=== PATIENT | male | born 1965 | race Caucasian/White ===

== ENCOUNTER 2025-05-18 13:35 | Emergency (ER) | payer BC, SELFPAY ==
--- OUTSIDE RECORDS SUMMARY | 2025-04-25 16:30 | XMS_ITS | Encounter Summary ---
Author Organization [facility] Address [address] [place] [phone] Phone [email or web address] [email or web address] Care Team Providers Care Cafe Lead Name Role Phone Unavailable Primary Care Provider Unavailabl e Reason for Visit * Reason Comments Eye Exam Personal eye exam. H e notices changes in vision. Increase in blur at near. Blur is mild. Spots and/or Floaters OP Occasionally se es floating dots or shadows. 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 male. Chief Complaint Eye Exam; Spots and/or Floaters OP HPI Eye Exam Additional comments: Personal eye exam. He notices changes in vision. Increase in blur at near. Blur is mild. Spots and/or Floaters OP In both eyes. Additional comments: Occasionally sees floating dots or shadows. Comments He reports some dry eyes recently. He does not treat with any drops. Last edited by Balwinder Roblero, OD on 04/25/2025 8:16 PM. ROS Negative for: Constitutional, Gastrointestinal, Neurological, Skin, Genitourinary, Musculoskeletal,HENT, Endocrine, Cardiovascular, Eyes, Respiratory, Psychiatric, Allergic/Imm, Heme/Lymph Last edited by Balwinedr Roblero, OD on 04/25/2025 4:31 PM. Visual Acuity Visual Acuity (Snellen - Linear) Right Left Dist sc 20/20 20/20 Dist cc 20/20 -2 20/20 Near cc 20/20 20/20 Pupils Pupils Pupils Dark Light APD Right PERRL 6 3 None Left PERRL 6 3 None Extraocular Movement Extraocular Movement Right Left Full, Ortho Full, Ortho Confrontational Visual Vo Visual Vo Left Right Full Full Tonometry Tonometry (Non-contact air puff, 4:47 PM) Right Left Pressure 16 18 Color Color Right Left Ishihara 08/13 08/13 Wearing Rx Wearing Rx Sphere Cylinder [place] Add Right [place] +2.50 Left +0.25 -0.50 180 +2.50 Type: PAL Wearing Rx #2 Sphere Cylinder [place] Add Right +0.50 -0.25 130 Left +1.00 -0.75 004 Type: autorefraction Keratometry Keratometry (Automated) K1 [place] K2 [place] Mires Right 44.50 144 45.00 054 Normal Left 44.25 009 44.50 099 Normal Manifest Refraction Manifest Refraction Sphere Cylinder [place] Dist VA Add Near VA Right +0.25 20/20 +2.25 J1+ Left +1.00 -0.75 004 20/20 +2.25 J1+ Eyeglass Final Rx Eyeglass Final Rx Sphere Cylinder [place] Dist VA Add Near VA Right +0.25 20/20 +2.25 J1+ Left +1.00 -0.75 004 20/20 +2.25 J1+ Type: PAL Expiration Date: 04/25/2026 Dilation Dilation Both eyes: 0.5% tropicamide @ 4:58 PM Main Ophthalmology Exam External Exam Right Left External Normal Normal Slit Lamp Exam Right Left Lids/Lashes Normal Normal Conjunctiva/Sclera White and quiet White and quiet Cornea Clear Clear Anterior Chamber Deep and quiet Deep and quiet Iris Round and reactive Round and reactive Lens 1+ Anterior subcapsular cataract 1+ Anterior subcapsular cataract Vitreous trace Vitreous syneresis trace Vitreous syneresis Fundus Exam Right Left Disc Normal Normal C/D Ratio 0.4 0.4 Macula Flat and Intact Flat and Intact Vessels Normal Normal Periphery Normal Normal <div id= MAIN_EXAM_REVIEWED ></div> Ronny was seen today for eye exam and spots and/or floaters op. Diagnoses and all orders for this visit: Presbyopia (Primary) - new glasses prescription given - recommend wearing Rx lenses full-time Mild Anterior cortical and subcapsular cataract OU - no treatment at this time - recommend yearly eye exams to monitor Vitreal floaters OU - discussed appears of floaters with patient - normal age-related changes - recommend RTC if notices any changes in size or number of floaters, or if develops other symptoms Balwinder Roblero OD documented in this encounter Plan of Treatment Not on file documented as of this encounter Visit Diagnoses Diagnosis Presbyopia- Primary documented in this encounter
[2025-05-18 14:00] VITALS: BP 150/73; PULSE 95; RESP 14; TEMP 36.9; O2SAT 97; BMI 28.6
--- OUTSIDE RECORDS SUMMARY | 2025-05-18 14:07 | XMS_ITS | Clinical Summary ---
Author Organization [facility] Address [address] [place] [address] Phone [email or web address] [email or web address] Care Team Providers Care Affiliate Marketing Specialist Name Role Phone Unavailable Primary Care Provider Unavailabl e Allergies No known active allergies Medications No known medications Encounters Date Type Department Care Team Description 04/25/2025 4:30 PM EDT Office Visit [facility] [address] [place] [address] Balwinder Roblero OD Presbyopia (Primary Dx) from Last 3 Months Social History Tobacco Use Types Packs/Day Years Used Date Smoking Tobacco: Never Assessed Stress Answer Date Recorded Stress in your Life Not on file 08/11/2024 Dealing with Stress 3 08/11/2024 Sex and Gender Information Value Date Recorded Sex Assigned at Male 04/25/2025 10:29 AM CDT 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 Gender Identity Male 04/25/2025 10:29 AM CDT Sexual Orientation Not on file Plan of Treatment Health Maintenance Due Date Last Done Comments CT Colonography 1965 Colonoscopy 1965 Colorectal Cancer Screening Combo 1965 DNA Cologuard 1965 Dental Cleaning/Exam 1965 FIT or FOBT Test 1965 HIV Screening 1965 Hepatitis C Screening 1965 Sigmoidoscopy 1965 Annual Preventive Exam 1983 Hep B Infection Screening - Triple Screen 1983 Hepatitis B Immunization (1 of 3 - 19+ 3-dose series) 1984 Zoster Immunization (1 of 2) 2015 Covid-19 Immunization (3 2023- season) 2024 01/06/2021, 12/16/2020 Influenza Immunization (#1) 2025 Tetanus Diphtheria and Pertussis Immunization (3 - Td or Tdap) 07/21/2033 07/21/2023, 01/08/2019 HIB Immunization Aged Out No longer e ligible based on patient's age to complete this topic HPV Immunization Aged Out No longer e ligible based on patient's age to complete this topic Hepatitis A Immunization Aged Out No longer eligible based on patient's age to complete this topic Pneumococcal: Ped (0 to 5 Yr s) and At-Risk Member (6 to 64 Yrs) Aged Out No longer eligible b ased on patient's age to complete this topic Polio Immunization Aged Out No longer eligible based on patient's age to complete this topic
--- NOTE | 2025-05-18 14:08 | ED_ITS ---
<Statement entered by Benson Desouza DO - 05/19/25 17:27> I was consulted by the KARMEN, and we discussed the complexity of problems being addressed. I approved the treatment and management plan for this patient's care in the emergency department, thus performing a substantive portion of the medical decision making. Benson Desouza DO Discharge Plan Disposition Patient Disposition: Home, Self-Care Referrals Follow up/Referrals: Provider,Referral, MD [Primary Care Provider, Medical] - See instructions Activity Restrictions/Add. Instructions Additional Instructions/Restrictions: Today you were evaluated in the emergency department, you have a mild, partial amputation of your distal thumb. Lease leave the nonadherent dressing that we applied for at least 24 hours. Please keep the area clean and dry, leave it open to air when possible. No swimming or submerging your finger for at least 7 to 10 days. Please return to the ED immediately if you have any signs of infection. This will take approximately 2 to 4 weeks to heal. Follow-up with your PCP. Return to the ED for worsening of condition. Today your tetanus vaccination was updated. Clinical Impressions Clinical Impression: Soft tissue injury of finger Instructions Patient Instructions: DI for Laceration Repair Print Language Print Language: Haitian Discharge ED Provider: Benson Desouza Adult HPI General Chief complaint: Wound/Laceration Stated complaint: AO 05/18/25 13:15. cut rt thumb Time Seen by Provider: 05/18/25 13:56 History of Present Illness HPI narrative: patient is a 59-year-old male no significant PMHx who presents to the ED for a laceration with a table-saw that occurred prior to arrival. Patient states he was guide while using a table saw but still cut the tip of his right thumb. Patient states it initially bled but however stopped pretty quickly. Related Data Allergies Allergy/AdvReac Type Severity Reaction Status Date / Time No Known Drug Allergies Allergy Unknown Verified 05/18/25 14:10 [facility] Dis[facility]: The information contained in this section may have been updated after the patient was seen, as this information can be updated by other users. Social History Smoking Status: Never smoker alcohol intake: never current occupational status: employed Travel in the last 8 weeks?: None ROS Obtained: Yes Systems reviewed as appropriate & no additional complaints except as documented Physical Exam General General appearance: alert Head Head exam: atraumatic Eye Eye exam: Present PERRL Neck Neck exam: Present full ROM Respiratory Respiratory exam: Present normal lung sounds bilaterally Cardiovascular Cardiovascular exam: Present regular rate Abdominal Exam Abdominal exam: Present soft Extremities Exam Extremities exam: Present other (Right thumb distal mild partial amputation, minor tissue injury ) Neurological Exam Neurological exam: Present alert and oriented X3 Skin Skin exam: Present warm Medical Decision Making Medical Records Screening: Per USPSTF and CDC recommendations, given the prevalence of disease in our region, it is our hospital?s policy to screen for HIV and viral Hepatitis for all patients aged 18 and over and those with ongoing risk factors. Esa Inquiry Pt receiving controlled substance: No Vital Signs: 05/18/25 14:00 05/18/25 14:36 Temperature 98.4 F 98.5 F Temperature Source Oral Oral Pulse Rate 82 Pulse Rate [Right] 95 H Respiratory Rate 14 14 Blood Pressure 131/99 H Blood Pressure [Right Arm] 150/73 H Blood Pressure Mean [Right Arm] 98 Blood Pressure Source Automatic Cuff Blood Pressure Source [Right Arm] Automatic Cuff Blood Pressure Position Supine Blood Pressure Position [Right Arm] Supine 02 Sat by Pulse Oximetry 97 Oxygen Delivery Method Room Air Room Air Orders (Tests/Meds): ED MEDICATIONS Discontinued Medications Generic Name Dose Route Start Last Admin Trade Name Freq PRN Reason Stop Dose Admin Tetanus/Reduced Diphtheria/Acell Pertussis 0.5 ml 05/18/25 14:11 05/18/25 14:25 Tet/Diphth/Pert-Adult 0.5ml Syringe IM 05/18/25 14:12 0.5 ml .ONCE ONE Administration Medical Decision Narrative: In summary, patient is a 59-year-old male no significant PMHx who presents to the ED for a laceration with a table-saw that occurred prior to arrival. Patient states he was guide while using a table saw but still cut the tip of his right thumb. Patient states it initially bled but however stopped pretty quickly. He denies any other injury. He states he has had a table-saw injury in the past. Denies any additional symptoms. Upon initial evaluation patient is alert, oriented and cooperative. He is hemodynamically stable. Physical exam remarkable for distal right thumb, minor, partial amputation of the tip. Minor tissue injury. Area is not bleeding. Patient was soaked in Hibiclens, we applied a nonadherent gauze wrapped with Sabiha to cover the area. I discussed with patient that this should heal in 2 to 4 weeks. Advised him to keep the bandage on for at least 24 hours, then he can wash with soap and water. Advised him to not submerge this, do not swim for at least 7 to 10 days. We discussed signs of infection to which she would need to return to the ED for. I advised him of how to care for this. Patient and his spouse verbalized understanding. He was given extra bandage supplies. He remained hemodynamically stable during his ED stay. Critical Care Critical Care Time Critical Care Time: No
[2025-05-18] MEDS: TET/DIPHTH/PERT-ADULT 0.5ML SYRINGE 0.5 ML IM (14:25)
[2025-05-18 14:36] VITALS: BP 131/99; PULSE 82; RESP 14; TEMP 36.9; O2SAT 97
== END 2025-05-18 14:45 | disposition home or self-care (01) ==
PROVIDERS: Emergency Provider Student in an Organized Health Care Education/Training Program
DX: S61.001A Unspecified open wound of right thumb without damage to nail, initial encounter (principal); W31.2XXA Contact with powered woodworking and forming machines, initial encounter
CPT/HCPCS: 90471; 90715; 99283

== ENCOUNTER 2025-06-14 10:05 | Outpatient (CLI) | payer BC, SELFPAY ==
--- OUTSIDE RECORDS SUMMARY | 2025-04-25 16:30 | XMS_ITS | Encounter Summary ---
Author Organization [facility] Address [address] [place] [phone] Phone [email or web address] [email or web address] Care Team Providers Care Blind Lacer Name Role Phone Unavailable Primary Care Provider Unavailabl e Reason for Visit * Reason Comments Eye Exam Personal eye exam. H e notices changes in vision. Increase in blur at near. Blur is mild. Spots and/or Floaters OP Occasionally se es floating dots or shadows. 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 Visual [...] 08/13 Wearing Rx Wearing Rx Sphere Cylinder [place] Add Right [place] +2.50 Left +0.25 -0.50 180 +2.50 Type: PAL Wearing Rx #2 Sphere Cylinder [place] Add Right +0.50 -0.25 130 Left +1.00 -0.75 004 Type: autorefraction Keratometry Keratometry (Automated) K1 Arden K2 Ar[place] Mires Right 44.50 144 45.00 054 Normal Left 44.25 009 44.50 099 Normal Manifest Refraction Manifest Refraction Sphere Cylinder [place] Dist VA Add Near VA Right +0.25 20/20 +2.25 J1+ Left +1.00 -0.75 004 20/20 +2.25 J1+ Eyeglass Final Rx Eyeglass Final Rx Sphere Cylinder [place] Dist VA Add Near VA Right +0.25 [...]
[2025-06-14 12:41] LABS: Microscopic, Urine URINE MICROSCOPIC (MICROSCOPIC)
[2025-06-14 13:10] LABS: Hematocrit 46.9 % (42.0-52.0); Hemoglobin 15.4 g/dL (14.1-18.0); Immature Granulocytes % 0.3 %; Mean Corpuscular HGB Conc 32.8 g/dL (31.8-35.4); Mean Corpuscular Hemoglobin 30.0 pg (27.0-31.2); Mean Corpuscular Volume 91.4 fl (80-94); Nucleated Red Blood Cells % 0 %; Platelet Count 273 K/mm3 (142-424); Red Blood Count 5.13 M/mm3 (4.60-6.20); Red Cell Distribution Width-SD 43.2 fL; White Blood Count 8.8 K/mm3 (4.8-10.8)
[2025-06-14 13:16] LABS: Bilirubin,Urine Negative (Negative); Color,Urine YELLOW (Yellow); Glucose,Urine (UA) Negative (Negative); Ketones,Urine Negative (Negative); Leukocyte Esterase,Urine Negative (Negative); PH,Urine 5.5 (5.0-8.5); Protein,Urine Negative (Negative); Urobilinogen,Urine 0.2 EU/dl (0.2)
[2025-06-14 13:18] LABS: Hemoglobin A1C 5.4 % (4.0-6.0)
[2025-06-14 13:29] LABS: Specific Gravity, Urine 1.005 (1.005-1.030)
[2025-06-14 13:56] LABS: Free T4 (Free Thyroxine) 1.10 ng/dl (0.78-2.19)
[2025-06-14 13:59] LABS: Alanine Aminotransferase 31 U/L (12-78); Alkaline Phosphatase 75 U/L (38-126); Aspartate Amino Transferase 30 U/L (17-59); Bilirubin,Total 0.6 mg/dl (0.2-1.3); Blood Urea Nitrogen 17 mg/dl (9-20); Carbon Dioxide 24 mmol/L (22.0-30.0); Creatinine,Serum 0.90 mg/dl (0.66-1.25); Estimated Glomerular Filt Rate 86 ml/min (>60); GFR (African American) 104 ML/MIN (>60); Iron 87 ug/dL (49-181); Total Protein,Serum 7.4 g/dl (6.3-8.2)
[2025-06-14 14:00] LABS: 25-OH Vitamin D, Total 28.0 ng/mL (30-100); Calcium 9.4 mg/dl (8.4-10.2); Cholesterol 166 mg/dl (140-200); Glucose 80 mg/dl (74-100); HDL Cholesterol 42 mg/dl (40-60); Triglycerides 208 mg/dl (30-150)
[2025-06-14 14:11] LABS: Thyroid Stimulating Hormone 2.35 uIU/mL (0.465-4.68)
[2025-06-14 14:17] LABS: Total Iron Binding Capacity 380 ug/dL (261-462)
[2025-06-14 14:21] LABS: Anion Gap 14.8 mEq/L (5-15); Chloride 106 mmol/L (98-107); Potassium 4.8 mmoL/L (3.5-5.1); Sodium 140 mmol/L (136-145)
[2025-06-14 14:30] LABS: Hepatitis C Ab Qual. W/ RFX NEGATIVE (Negative)
[2025-06-14 14:47] LABS: Ferritin 43.9 ng/ml (17.9-464)
[2025-06-14 14:48] LABS: Albumin Level 4.6 g/dl (3.5-5.0); Albumin/Globulin Ratio 1.6 (1.1-1.8); Globulin 2.8 g/dL (1.3-3.2)
[2025-06-14 16:06] LABS: Vitamin B12 285 pg/mL (239-931)
--- OUTSIDE RECORDS SUMMARY | 2025-06-17 10:11 | XMS_ITS | Clinical Summary ---
Author Organization [facility] Address [address] [place] [phone] Phone [email or web address] [email or web address] Care Team Providers Care [facility] Wellness Coordinator Name Role Phone Unavailable Primary Care Provider Unavailabl e Allergies No known active allergies Medications No known medications Encounters Date Type Department Care Team Description 04/25/2025 4:30 PM EDT Office Visit [facility] [address] [place] [phone] Balwinder Roblero OD Presbyopia (Primary Dx) from Last 3 Months Social History Tobacco Use Types Packs/Day Years Used Date Smoking Tobacco: Never Assessed Stress Answer Date Recorded Stress in your Life Not on file 08/11/2024 Dealing with Stress 3 08/11/2024 Sex and Gender Information Value Date Recorded Sex Assigned at Male 04/25/2025 10:29 AM CDT 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
== END 2025-06-14 23:59 ==
LOC: LAB.DROPOF 06-17 10:06
PROVIDERS: PCP Nurse Practitioner Family; Visit Provider Nurse Practitioner Family
DX: E78.5 Hyperlipidemia, unspecified (principal); I10 Essential (primary) hypertension; Z76.89 Persons encountering health services in other specified circumstances; Z11.59 Encounter for screening for other viral diseases; Z11.4 Encounter for screening for human immunodeficiency virus [HIV]; Z13.21 Encounter for screening for nutritional disorder; R20.0 Anesthesia of skin; R20.2 Paresthesia of skin; Z98.1 Arthrodesis status; M48.02 Spinal stenosis, cervical region; Z12.5 Encounter for screening for malignant neoplasm of prostate; R53.83 Other fatigue; R41.89 Other symptoms and signs involving cognitive functions and awareness; E11.9 Type 2 diabetes mellitus without complications; G47.33 Obstructive sleep apnea (adult) (pediatric); R41.3 Other amnesia
CPT/HCPCS: 80053; 80061; 81001; 82306; 82607; 82728; 83036; 83540; 83550; 84156; 84439; 84443; 85025; 86803; 87086; 87389; G0103

== ENCOUNTER 2025-07-30 17:00 | Outpatient (RCR) | payer BC, SELFPAY ==
--- NOTE | 2025-07-10 17:30 | HMH.PTOPEV ---
PT Evaluation Rehab PT Outpatient Evaluation Start: 07/10/25 16:00 Freq: Status: Active Protocol: Document 07/10/25 16:00 DEXEstevan (Rec: 07/10/25 17:30 MITZI [id number]) E-signed By Christy Smith, PT Outpatient Therapy Subjective History Subjective History Pt is a 60 y/o male who reports chronic neck pain with history of cervical fusion of C4-6 in August of 2017 without complications. Pt reports initial improvement in symptoms for 1-2 years then started having pain again due to his active lifestyle. Pt reports current symptoms of R>L sided neck pain, upper trapezius tension and mild-moderate posterior headaches that occur 2-3x/week. Pt denies n/v, light or noise sensitivity with Pt also reports chronic L arm numbness that extends into his left middle and ring fingers that does not vary in frequency or intensity. Pt states this has been present since before his surgery. Pt reports pain is aggravated by heavy lifting, looking up a lot, and rotation such as when driving. Pt reports he recently moved to this area in March-April from [place] and was seeing a physical therapist on and off for neck pain with most recent POC in June of 2024. Pt states they were dry needling his neck which seemed to assist with neck and shoulder tension. R handed Occupation: Graduate Assistant for [employer] New diagnosis of No cancer in past 12 months? Chief Complaint Pain,Paresthesia Symptom Type Ache,Sharp,Dull,Numbness Symptoms Relieved By Rest/Positioning,Ice,Prescription Meds Symptoms Aggravated Physical Activity,Lifting By Current Functional Lifting,Desk Work/Reading,Driving Limitations Symptom Description Intermittent Level of pain today 5 (0-10) Pain scale - at its 4 best (0-10) Pain scale - at its 9 worst (0-10) Cervical Eval Palpation Cervical Muscles R Cervical Paraspinal,R Suboccipital,L Suboccipital,R Upper Trapezius,L Upper Trapezius Cervical/Thoracic Tenderness Palpation Findings Flexibility Deficits Upper Trapezius (R) Moderate Tightness,(L) Moderate Tightness Muscle Length Levaetor Scapulae (R) Moderate Tightness,(L) Moderate Tightness Muscle Length Pectoralis Major (R) Mild Tightness,(L) Mild Tightness Muscle Length Pectoralis Minor (R) Mild Tightness,(L) Mild Tightness Muscle Length Passive Joint Mobility Cervical PIVM Dec: R C2/3 R C3/4 R C4/5 AROM Cervical Spine 30 Extension Active Range of Motion ( degrees) Cervical Spine 35 Flexion Active Range of Motion (degrees) Cervical Spine Right 35 Lateral Flexion Active Range of Motion (degrees) Cervical Spine Left 35 Lateral Flexion Active Range of Motion (degrees) Cervical Spine Right 45 Rotation Active Range of Motion ( degrees) Cervical Spine Left 50 Rotation Active Range of Motion ( degrees) Altered Sensation Bilateral Upper extremity C4 Dermatomes Comment decreased light touch sensation right compared to left Special Test C-Spine Foraminal Negative Left,Negative Right Compression ( [place]) Test C-spine Verterbral Central P/A [place],Right P/A [place] Accessory Movements that Elicit Symptoms C-Spine Compression Negative Left,Negative Right Test Shoulder/Elbow Eval Shoulder Objective Measurements Shoulder MMT Bilateral Lower Trapezius 4- Good- Strength Grade Middle Trapezius 4- Good- Strength Grade Rhomboids Strength 4- Good- Grade Serratus Anterior 4 Good Strength Grade Upper Trapezius/ 4 Good Levator Scapulae Elbow Objective Measurements Neck Disability Index Neck Disability Index Section 1: Pain The pain is moderate at the moment Intensity Section 2: Personal I can look after myself normally without causing extra Care (washing, pain dressing, etc.) Section 3: Lifting I can lift heavy weights without extra pain Section 4: Reading I can read as much as I want with moderate pain in my neck Section 5: Headaches I have moderate headaches, which come frequently Section 6: I can concentrate fully when I want to with slight Concentration difficulty Section 7: Work I can do as much work as I want to Section 8: Driving I can drive my car as long as I want with moderate pain in my neck Section 9: Sleeping My sleep is midly disturbed (1-2 hrs sleepless) Section 10: I am able to engage in all my recreation activities Recreation with some pain in NDI Score 13 Outpatient Therapy Assessment Impairments Problems/ Palpation Tenderness,Impaired Range of Motion,Impaired Impairmments Strength,Impaired Driving,Impaired Lifting,Impaired Work Activities,Impaired Desk/Computer Activities, Subjective C/O Pain,Impaired Self Care/Self Management Prognosis Rehab Potential Good Clinical Impression Consistent with Yes Diagnosis PT Patient Goals PT Patient Goals PT Short Term 3 weeks: Patient Goals 1. Verbalize compliance with HEP to assist with progress. 2. Improve pain at worst to 7/10 to improve overall QOL /function. 3. Improve tenderness to palpation of neck musculature to 0-1/4 to assist with pain and mobility. PT Usp Patient 6 weeks: Goals 1. Improve cervical AROM flex/ext/LF to at least 40 and rotation to 60. 2. Improve scapular strength to 4+/5 grossly to assist with posture and function. 3. Improve pain at worst to 5/10 to improve overall QOL /function. 4. Improve NDI score to 8 to improve overall QOL/ function. Outpatient Therapy Plan of Care Treatment Plan May Include Therapeutic Exercise Yes Including Home Exercise Program Manual Therapy Yes Techniques Neuromuscular Re- Yes education Therapeutic Yes Activities to Return to Previous Functional/Work Level ADL/Self Care Yes Education Mechanical Traction Yes Dry Needling Yes Thermal Modalities Yes Electrical Yes Stimulation Ultrasound/ Yes Phonophoresis Iontophoresis Yes Orthotics/Bracing/ Yes Splinting Vasopneumatic Yes Compression Pump Massage Yes Group Therapy for Yes Medicare Eval/Re-Eval Yes Frequency Times per week 2 Duration Number of Weeks 4-6 Addendums This patient is a No candidate for social or vocational rehab ? Patient/Guardian Yes verbally acknowledges understanding of treatment program and consents to further treatment? Patient/Guardian Yes verbally acknowledges understanding of diagnosis, prognosis and goals for treatment? Eval Complexity PT Charges [id number] - Low Complexity PHYSICIAN CERTIFICATION: I certify the specified therapy services for Mendez Costello are required, authorized, and reviewed every 30 days.
== END 2025-07-30 23:59 | disposition home or self-care (01) ==
LOC: PT 17:00
PROVIDERS: Visit Provider Nurse Practitioner Family
DX: M48.02 Spinal stenosis, cervical region (principal); Z98.1 Arthrodesis status
CPT/HCPCS: 97110; 97140; 97161

== ENCOUNTER 2025-08-21 17:00 | Outpatient (RCR) | payer BC, SELFPAY ==
--- NOTE | 2025-08-07 18:12 | [facility].RHREAS ---
Rehab Reassessment Rehab OP Re-assessment Start: 08/07/25 17:04 Freq: Status: Active Protocol: Document 08/07/25 17:18 MITZI (Rec: 08/07/25 18:11 [email or web address] [id number]) E-signed By Christy Smith PT Neck Disability Index Neck Disability Index Section 1: Pain The pain is very mild at moment Intensity Section 2: Personal I can look after myself normally without causing extra Care (washing, pain dressing, etc.) Section 3: Lifting I can lift heavy weights but it gives extra pain Section 4: Reading I can read as much as I want to with slight pain in my neck Section 5: Headaches I have moderate headaches, which come infrequently Section 6: I can concentrate fully when I want to with slight Concentration difficulty Section 7: Work I can do most of my usual work, but no more Section 8: Driving I can drive my car as long as I want with slight pain in my neck Section 9: Sleeping My sleep is slightly disturbed (less than 1 hr sleepless) Section 10: I am able to engage in all my recreation activities Recreation with some pain in NDI Score 11 Rehab Re-assessment Subjective Subjective Pt reports he feels 20% improved since starting PT. Pt reports he feels that his shoulder/scapular muscles feel a little stronger. Pt reports his neck continues to feel stiff most of the time. Pt reports compliance with HEP without change in symptoms or stiffness. Pt reports pain at worst as 6/10 and at best as 4/10 on VAS. Pt reports pain continues to be aggravated by heavy lifting, looking up a lot, and rotating his head such as when driving. Pt reports continues mild- moderate headaches 2-3x/week. Objective Objective Notes Palpation: 10/06 TTP of UT, C3-C5 Cervical AROM: flex 35, ext 35, RLF 35, LLF 35, R rot 45 , L rot 55 Assessment Assessment Notes Pt has attended 4 PT treatment sessions since his initial evaluation along with an independent HEP. PT treatment sessions have consisted of aerobic exercise, cervical mobility, UE stretching, scapular strengthening, postural re-education, manual therapy and HEP with good tolerance. Pt demonstrated slight improvement in subjective report of pain, cervical extension and left rotation AROM, and NDI score this date compared to the initial evaluation. Overall, the pt would continue to benefit from skilled PT to further improve subjective report of pain, cervical mobility, soft tissue extensibility, scapular strength, posture and functional activity tolerance to improve overall QOL/function. PT Patient Goals PT Short Term 3 weeks: 3/3 Patient Goals 1. Verbalize compliance with HEP to assist with progress. -MET 2. Improve pain at worst to 7/10 to improve overall QOL /function. -MET 3. Improve tenderness to palpation of neck musculature to 0-1/4 to assist with pain and mobility. -MET PT Rn Iv Therapy Patient 6 weeks: Goals 1. Improve cervical AROM flex/ext/LF to at least 40 and rotation to 60. 2. Improve scapular strength to 4+/5 grossly to assist with posture and function. 3. Improve pain at worst to 5/10 to improve overall QOL /function. 4. Improve NDI score to 8 to improve overall QOL/ function. Plan Plan Continue initial POC Frequency of Therapy 2x/week Duration of Therapy 4 more weeks Therapeutic Exercise Yes Including Home Exercise Program Manual Therapy Yes Techniques Neuromuscular Re- Yes education Therapeutic Yes Activities to Return to Previous Functional/Work Level ADL/Self Care Yes Education Mechanical Traction Yes Dry Needling Yes Thermal Modalities Yes Electrical Yes Stimulation Ultrasound/ Yes Phonophoresis Iontophoresis Yes Massage Yes Eval/Re-Eval Yes Time and Billing Re-Eval Time 13 Re-Eval Billing 0 Units Charge for PT No reassessment? Charge for OT No reassessment? PHYSICIAN CERTIFICATION: I certify the specified therapy services for Mendez Costello are required, authorized, and reviewed every 30 days.
== END 2025-08-21 23:59 | disposition home or self-care (01) ==
LOC: PT 17:00
PROVIDERS: PCP Nurse Practitioner Family; Visit Provider Nurse Practitioner Family
DX: M48.02 Spinal stenosis, cervical region (principal); Z98.1 Arthrodesis status
CPT/HCPCS: 97110; 97140

== ENCOUNTER 2025-09-18 17:00 | Outpatient (RCR) | payer BC, SELFPAY ==
--- NOTE | 2025-09-04 18:19 | [facility].RHREAS ---
Rehab Reassessment Rehab OP Re-assessment Start: 09/04/25 17:12 Freq: Status: Active Protocol: Document 09/04/25 17:12 MITZI (Rec: 09/04/25 18:18 [email or web address] [id number]) E-signed By Christy Smith PT Neck Disability Index Neck Disability Index Section 1: Pain The pain is moderate at the moment Intensity Section 2: Personal I can look after myself normally without causing extra Care (washing, pain dressing, etc.) Section 3: Lifting I can lift heavy weights but it gives extra pain Section 4: Reading I can read as much as I want to with slight pain in my neck Section 5: Headaches I have moderate headaches, which come infrequently Section 6: I can concentrate fully when I want to with slight Concentration difficulty Section 7: Work I can only do my usual work, but no more Section 8: Driving I can drive my car as long as I want with slight pain in my neck Section 9: Sleeping My sleep is slightly disturbed (less than 1 hr sleepless) Section 10: I am able to engage in all my recreation activities Recreation with some pain in NDI Score 11 Rehab Re-assessment Subjective Subjective Pt reports he feels 40% improved since starting PT. Pt reports improvement in neck stiffness overall. Pt reports compliance with HEP along with getting massages and doing yoga. Pt reports pain at worst as 6/10 and at best as 3/10 on VAS. Pt reports pain continues to be aggravated by prolonged and repetitively looking up, overhead manual labor, heavy lifting, and looking over his right shoulder. Pt reports continued frequent moderate headaches but feels that he does not have to take as much medication to improve pain or headaches. Objective Objective Notes Palpation: 2/4 TTP of UT, C3-C5 (increased due to soreness after massage this AM) Cervical AROM: flex 35, ext 40, RLF 35, LLF 40, R rot 45 , L rot 60 Scapular strength: 4/5 grossly Assessment Assessment Notes Pt has attended 6 PT treatment sessions since his initial evaluation 1x/week per pt preference along with an independent HEP with good tolerance. Pt demonstrated slight improvement in subjective report of pain at best, cervical extension, left lateral flexion and left rotation AROM this date compared to the previous reassessment. Pt demonstrated no change in subjective report of pain at worst or NDI score. Pt has only attended 2 PT treatment sessions since his previous reassessment due to being out of town for work likely limiting overall progress. Pt encouraged to attend PT 2x/week versus 1x/week to assist with progress although declined therefore provided with written/illustrated HEP instruction of advanced exercises to perform 1x/week at home along with PT in clinic 1x/week along with daily stretching and mobility exercises to assist with overall progress. Overall, the pt would continue to benefit from skilled PT to further improve subjective report of pain, cervical mobility, soft tissue extensibility, scapular strength, posture and functional activity tolerance to improve overall QOL/function. PT Patient Goals PT Short Term ALL MET Patient Goals PT [employer] Patient 6 weeks: 0/4 Goals 1. Improve cervical AROM flex/ext/LF to at least 40 and rotation to 60. -NOT MET 2. Improve scapular strength to 4+/5 grossly to assist with posture and function. -NOT MET 3. Improve pain at worst to 5/10 to improve overall QOL /function. -NOT MET 4. Improve NDI score to 8 to improve overall QOL/ function. -NOT MET Plan Plan Continue initial POC Frequency of Therapy 2x/week Duration of Therapy 4 more weeks Therapeutic Exercise Yes Including Home Exercise Program Manual Therapy Yes Techniques Neuromuscular Re- Yes education Therapeutic Yes Activities to Return to Previous Functional/Work Level ADL/Self Care Yes Education Dry Needling Yes Thermal Modalities Yes Electrical Yes Stimulation Ultrasound/ Yes Phonophoresis Iontophoresis Yes Massage Yes Eval/Re-Eval Yes Time and Billing Re-Eval Time 14 Re-Eval Billing 0 Units Charge for PT No reassessment? Charge for OT No reassessment? PHYSICIAN CERTIFICATION: I certify the specified therapy services for Mendez Pravin are required, authorized, and reviewed every 30 days.
== END 2025-09-18 23:59 | disposition home or self-care (01) ==
LOC: PT 17:00
PROVIDERS: PCP Nurse Practitioner Family; Visit Provider Nurse Practitioner Family
DX: M50.30 Other cervical disc degeneration, unspecified cervical region (principal); M48.02 Spinal stenosis, cervical region; Z98.1 Arthrodesis status
CPT/HCPCS: 97110; 97140